=== PATIENT | female | born 1965 | race Two or more races ===

== ENCOUNTER 2018-06-20 09:00 | Outpatient (AMBR) | payer MEDICARE, MEDICAID, SELFPAY ==
--- NOTE | 2018-06-09 10:24 | PT.OIERPT ---
PT OP Initial Eval Patient Information Pediatric or Adult Patient: Adult PT >13 Visit Reasons: RIGHT KNEE PAIN Medical Diagnosis: S 83.221A R MENISCAL TEAR Treatment Dx #1: pain on the R knee Start of Care: 06/09/18 Date of Onset: 04/08/2018 Initial Assessment Subjective 52 y/o female with multiple medical problems, R shoulder surgery due to Rotator cuff tear, R bicipital tendinitis, chronic mid back pain, hx of R foot fracture. Patient had an MRI and shows questionable medical meniscus tear and posterior horn. Patient was referred to PT for muscle strengthening and stabilization for conservative management. Patient has limitation on ambulation on level surface and the stairs. 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 Objective ms strength of knee flexors 5/5 knee extensors 4+/5 pain on the R knee PS 8/10 upon movement Standing balance S/D = good no swelling noted on the R knee, Mild swelling noted on the L superior aspect of the knee (+) tenderness on the medial aspect of the joint line in the inferior patella. MRI shows possible meniscal tear. Assessment Patient gave consent to treat her. This therapist explained the procedure including but not limited to Thera exercise and manual therapy as clinically appropriate. Patient will benefit from skilled PT services for strengthening ex and stabilization of the knee to promote ms strength. If patient will continue to have pain inspite of Physical therapy will referred back to orthopedic MD for further management. Patient verbalized understanding Short Term and Anesthesia Technician Goals To decrease pain on the R knee PS 3/10 To be able to increase ms strength on Rknee extensors to 5/5 To be able to manage stairs and to be able to ambulate with less difficult on even surface. Treatment Plan Thera ex NMR-ed Manual tx Modalites (estim, hmp) as clinically appropriate. Frequency and Duration 2x/wk x 4 weeks Certification Dates: 06/09/2018 to 09/05/2018
--- NOTE | 2018-06-16 13:38 | PT.ODAYNRPT ---
PT Outpatient Daily Note Date of Service: June 16, 2018 OP Daily Note Visit Reasons: RIGHT KNEE PAIN Outpatient Physical Therapy Treatment Date: 06/16/18 Subjective: pt had no complaints upon visit today. Objective: see flow sheet. Assessment: observed good quad contraction during exercises. good knee extension as well. after a few exercises and heel slides pt was having pain of the lateral R knee. pt was able to control each rep with slow and steady motion. she was able to complete the exercises but did have muscle fatigue. informed pt about possible soreness and use ice pack if needed. Plan: continue POC per PT. Length of Time (minutes) of Treatment: 30 Minutes Office Procedures PT Outpatient G-Codes Date of Service PT Date of Service: 06/09/18 G-Codes Walking & Moving Around Mobility Current Status G-Code: G8978: CJ 20-40% Mobility Status G-Code: G8979: CI 1-20% PT Procedures PT Date of Service: 06/09/18 OP PT Eval Mod Complex 30 minutes: Yes PT Procedures PT Date of Service: 06/16/18 Therapeutic Exercise 30 minutes: Yes
--- NOTE | 2018-06-20 09:25 | PT.ODAYNRPT ---
PT Outpatient Daily Note Date of Service: June 20, 2018 OP Daily Note Pediatric or Adult Patient: Adult PT >13 Visit Reasons: RIGHT KNEE PAIN Outpatient Physical Therapy Treatment Date: 06/20/18 Subjective: I have less pain today. I was sore after my therapy but it was good. Objective: pls see FS Assessment: patient is making progress steadily toward goals. as per patient it was just like this last time that she will feel better for 3mos and then it will hurt again. Patient were advice to see MD if that happens again. no swelling noted at the time of therapy. patient were given restbreaks as needed to prevent fatigue and to prevent increase of pain. Plan: to continue POC toward goals. Pain Present Currently: Yes (01/29) Length of Time (minutes) of Treatment: 30 Minutes Office Procedures PT Outpatient G-Codes Date of Service PT Date of Service: 06/09/18 G-Codes Walking & Moving Around Mobility Current Status G-Code: G8978: CJ 20-40% Mobility Status G-Code: G8979: CI 1-20% PT Procedures PT Date of Service: 06/09/18 OP PT Eval Mod Complex 30 minutes: Yes PT Procedures PT Date of Service: 06/16/18 Therapeutic Exercise 30 minutes: Yes
== END 2018-06-21 23:59 | disposition home or self-care (01) ==
PROVIDERS: PCP Nurse Practitioner Family; Referring Provider Nurse Practitioner Family; Visit Provider Orthopaedic Surgery
DX: I10 Essential (primary) hypertension (principal)
CPT/HCPCS: 97110; 97162; G8978; G8979

== ENCOUNTER 2018-07-07 09:30 | Outpatient (AMBR) | payer MEDICARE, MEDICAID, SELFPAY ==
--- NOTE | 2018-06-30 11:12 | PT.ODAYNRPT ---
PT Outpatient Daily Note Date of Service: June 30, 2018 OP Daily Note Pediatric or Adult Patient: Adult PT >13 Visit Reasons: r knee pain Outpatient Physical Therapy Treatment Date: 06/30/18 Subjective: Patient has complain of pain on Bilateral knees more on te R LE vs the LLE Objective: pls see FS Assessment: Patient states she didn't get enough sleep last night and was feeling tired this am. Patient has complain of pain on the L knee too and states she will have to deal with the R knee first before the L knee. Patient has complain of pain in the hip during tic tac exercise. Exercise was stop to prevent increase in pain. Plan: to continue POC toward goals. Pain Present Currently: Yes Length of Time (minutes) of Treatment: 30 Minutes Office Procedures PT Procedures PT Date of Service: 06/30/18 Therapeutic Exercise 30 minutes: Yes
--- NOTE | 2018-07-04 10:32 | PT.ODAYNRPT ---
PT Outpatient Daily Note Date of Service: July 04, 2018 OP Daily Note Visit Reasons: r knee pain Outpatient Physical Therapy Treatment Date: 07/04/18 Subjective: Patient is feeling better. No complaint of severe pain on the knee Objective: pls see FS Assessment: Patient were seen today doing strengthening ex. Patient were given 2lbs. As per patient her R knee is feeling better. Her L knee is bothering her more and that she will have to see her MD for the L knee. If patient will continue to progress. Will dc from skilled PT services next PT session. Plan: to continue POC toward goals. Pain Present Currently: Yes (01/29) Length of Time (minutes) of Treatment: 30 Minutes Office Procedures PT Procedures PT Date of Service: 06/30/18 Therapeutic Exercise 30 minutes: Yes
--- NOTE | 2018-07-07 10:07 | PT.ODS1RPT ---
PT OP Progress/Discharge Note Date of Service: July 07, 2018 Progress Note/DC Note Progress Note/Discharge Note: DC Note Patient Information Visit Reasons: r knee pain Admission Reason: R knee pain Medical Diagnosis: R meniscal tear S83.221A Treatment Dx #1: Pain in the R knee Service Continue Service or Discharge: Discharge Physical Therapy Outpatient Service Dates: From: / To:: 06/09/2018 to 07/07/2018 Discharge Date: 07/07/18 Certification Date Certification Dates: 06/09/2018 to 09/05/2018 Plan Treatment Plan: Status Subjective: 52 y/o female who had multiple medical problems including R knee pain. MRI shows questionable medial meniscus tear and posterior horn. Today at the last treatment session. patient still complains of pain on the R knee. Today is PS7/10. although she mentioned it is on and off sometimes it is better sometimes she feels pain that she has to wear brace. Today she does feel pain and she said she wears her brace yesterday and will wear them tomorrow. But She feels uncomfortable wearing them. 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 Objective: ms strength of knee flexors and extensors 5/5 Pain on the R knee at worst is 7/10 at best its 3/10 Standing balance = good No edema noted on bilateral LE. Assessment: Patient will be dc today due to no significant gains noted. Patient will be referred back to her referring MD for further management. 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 Plan: to be dc from skilled PT services secondary to maximum rehab potential achieved. Treatment Provided This POC: Thera ex for ms strengthening to facilitate transfers and amb and balance training to promote balance and to decrease risk of falls. Goals Achieved: ms strength on RLE is 5/5 grossly graded. Discharge Comment: dc from skilled PT services. Will refer back to her referring MD. As per patient she has an appointment already set up this to see him. She was thankful for the service provided. Office Procedures PT Procedures PT Date of Service: 06/30/18 Therapeutic Exercise 30 minutes: Yes PT Procedures PT Date of Service: 07/04/18 Therapeutic Exercise 30 minutes: Yes
--- NOTE | 2018-07-07 10:34 | PTNOTE_ITS ---
PT OP Progress/Discharge Note Date of Service: July 07, 2018 Progress Note/DC Note Progress Note/Discharge Note: DC Note Patient Information Visit Reasons: r knee pain Admission Reason: R knee pain Medical Diagnosis: R meniscal tear S83.221A Treatment Dx #1: Pain in the R knee Service Continue Service or Discharge: Discharge Physical Therapy Outpatient Service Dates: From: / To:: 06/09/2018 to 07/07/2018 Discharge Date: 07/07/18 Certification Date Certification Dates: 06/09/2018 to 09/05/2018 Plan Treatment Plan: Status Subjective: 52 y/o female who had multiple medical problems including R knee pain. MRI shows questionable medial meniscus tear and posterior horn. Today at the last treatment session. patient still complains of pain on the R knee. Today is PS7/10. although she mentioned it is on and off sometimes it is better sometimes she feels pain that she has to wear brace. Today she does feel pain and she said she wears her brace yesterday and will wear them tomorrow. But She feels uncomfortable wearing them. 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 Objective: ms strength of knee flexors and extensors 5/5 Pain on the R knee at worst is 7/10 at best its 3/10 Standing balance = good No edema noted on bilateral LE. Assessment: Patient will be dc today due to no significant gains noted. Patient will be referred back to her referring MD for further management. 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 Plan: to be dc from skilled PT services secondary to maximum rehab potential achieved. Treatment Provided This POC: Thera ex for ms strengthening to facilitate transfers and amb and balance training to promote balance and to decrease risk of falls. Goals Achieved: ms strength on RLE is 5/5 grossly graded. Discharge Comment: dc from skilled PT services. Will refer back to her referring MD. As per patient she has an appointment already set up this to see him. She was thankful for the service provided. Office Procedures PT Procedures PT Date of Service: 06/30/18 Therapeutic Exercise 30 minutes: Yes PT Procedures PT Date of Service: 07/04/18 Therapeutic Exercise 30 minutes: Yes
== END 2018-07-22 23:59 | disposition home or self-care (01) ==
PROVIDERS: PCP Nurse Practitioner Family; Referring Provider Nurse Practitioner Family; Visit Provider Nurse Practitioner Family
DX: M25.561 Pain in right knee (principal); M25.562 Pain in left knee; S83.221D Peripheral tear of medial meniscus, current injury, right knee, subsequent encounter; X58.XXXD Exposure to other specified factors, subsequent encounter
CPT/HCPCS: 97110

== ENCOUNTER 2025-03-18 07:37 | Emergency (ER) | payer MEDICARE, MEDICAID, SELFPAY ==
[2025-03-18 08:08] VITALS: BP 168/77; PULSE 70; RESP 20; TEMP 36.7; O2SAT 98; BMI 23.2
--- NOTE | 2025-03-18 08:34 | XR_ITS ---
Examination: CT lumbar spine, without contrast. 2-D sagittal reconstructions. 2-D coronal reconstructions. 3-D reconstructions. Date and time of exam:March 18, 2025 0855 hours Comparison January 03, 2024 INDICATIONS: Low back pain several years, patient fell one year ago with increasing low back pain CTDI: vol (mGy):14.1 DLP: (mGycm):417 Technique: Multiple 1.25 mm axial sections of the lumbar spine without intravenous contrast have been obtained. 2-D sagittal and coronal reconstructions have been obtained. 3-D reconstructions have been obtained. Low dose protocols were performed. One or more of the following dose reduction techniques were used; automated exposure control, adjustment of the mA and/or KV according to patient size, use of iterative reconstruction technique. Findings: Satisfactory alignment lumbar vertebral bodies No lumbar fracture No spondylolisthesis Lumbar pedicles, laminae, transverse and posterior spinous processes intact L5-S1 no disc protrusion L4-L5 no disc protrusion L3-L4 no disc protrusion L2-L3 no disc protrusion L1-L2 no disc protrusion IMPRESSION: Satisfactory alignment lumbar vertebral bodies No lumbar fracture No focal lumbar disc protrusion If pain persists, consider MRI lumbar spine without contrast follow-up
--- NOTE | 2025-03-18 08:34 | XR_ITS ---
Examination:Right hip AP, lateral, AP pelvis 3 views Technique: Hip AP lateral, AP pelvis, 3 views Exam date and time:March 18, 2025 0952 hours INDICATIONS: Chronic right hip pain years FINDINGS: Moderate osteopenia. Minimal narrowing right hip joint No hip fracture or hip dislocation Bones of the pelvis intact IMPRESSION: Minimal narrowing hip joints No hip or pelvic fracture
--- NOTE | 2025-03-18 08:44 | EDRME_ITS ---
Rapid Medical Screening Exam RME Arrival date/time: 03/18/25 07:37 This is a 59-year-old female that comes to the emergency room with multiple complaints. 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 Patient currently on [place] for pain patient states that the [place] has not been helping her. Patient states her lower back and her right hip have been hurting her P. Patient describes generalized weakness but no focal weakness to any area. Patient denies any numbness or tingling. Patient states the pain to her lower back has become unbearable. Patient denies any trauma. I have greeted and performed a focused initial assessment of this patient. Initial appropriate labs ordered at this time. A comprehensive ED assessment and evaluation of the patient and analysis of all test and completion of medical decision making process will be conducted by additional ED provider. Chief Complaint: Back Pain/Injury Time Seen by Provider: 03/18/25 07:54 Vital signs: Vital Signs Temperature 98.1 F 03/18/25 08:08 Pulse Rate 70 03/18/25 08:08 Respiratory Rate 20 03/18/25 08:08 Blood Pressure 168/77 H 03/18/25 08:08 Pulse Oximetry (%) 98 03/18/25 08:08 Oxygen Delivery Method Room Air 03/18/25 08:08
[2025-03-18] MEDS: HYDROcodone/APAP 10/325 TAB PO (09:14)
[2025-03-18] MEDS: ONDANSETRON ODT 4 MG TABRAP PO (09:15)
--- NOTE | 2025-03-18 10:20 | EDNOTE_ITS ---
<Statement entered by Michell Angel MD - 03/25/25 04:26> As co-signing physician, I was present and available for consult prn. I concur with the plan and care as documented by the midlevel provider. Lower Extremity Injury RME/HPI General Chief Complaint: Back Pain/Injury Stated Complaint: REALLY BAD PAIN IN R) HIP & R) LOWER BACK Time Seen by Provider: 03/18/25 07:54 Arrival date/time: 03/18/25 07:37 This is a 59-year-old female that comes to the emergency room with multiple c omplaints. Patient states that she has fibromyalgia she has hyperlipidemia, chronic pain, high blood pressure, depression spinal stenosis, and is under direct care by her personal banking advisor. Patient currently on [place] for pain patient states that the [place] has not been helping her. Patient states her lower back and her right hip have been hurting her. Patient describes generalized weakness but no focal weakness to any area. Patient denies any numbness or tingling. Patient states the pain to her lower back has become unbearable. Patient denies any trauma. No loss of bowel or bladder function. RME / HPI RME / HPI Narrative: 03/18/25 07:37 This is a 59-year-old female that comes to the emergency room with multiple c omplaints. Patient states that she has fibromyalgia she has hyperlipidemia, chronic pain, high blood pressure, depression spinal stenosis, and is under direct care by her personal banking advisor. Patient currently on [place] for pain patient states that the [place] has not been helping her. Patient states her lower back and her right hip have been hurting her P. Patient describes generalized weakness but no focal weakness to any area. Patient denies any numbness or tingling. Patient states the pain to her lower back has become unbearable. Patient denies any trauma. I have greeted and performed a focused initial assessment of this patient. Initial appropriate labs ordered at this time. A comprehensive ED assessment and evaluation of the patient and analysis of all test and completion of medical decision making process will be conducted by additional ED provider. Related Data Home Medications ?Medication ?Instructions ?Recorded ?Confirmed sertraline 100 mg tablet 100 mg PO QDAY 11/02/1908/14 alendronate 70 mg tablet 1 tab PO QWEEK 04/23/2208/14 atorvastatin 80 mg tablet 80 mg PO QDAY 04/23/2203/30 ezetimibe 10 mg tablet 10 mg PO QDAY 04/23/2203/30 gabapentin 300 mg capsule 300 mg PO BID 04/23/2203/30 lisinopril 5 mg tablet 5 mg PO QDAY 04/23/22 hydrocodone 10 mg-acetaminophen 1 tab PO QID PRN Pain 03/30/23 03/30/23 325 mg tablet ibuprofen 600 mg tablet 600 mg PO BID PRN Pain 03/3003/30/23 omeprazole 20 mg capsule,delayed 20 mg PO DAILY 03/30/23 release varenicline tartrate 1 mg tablet 1 mg PO BID 03/30/23 03/30/23 Previous Rx's ?Medication ?Instructions ?Recorded hydrocodone 5 mg-acetaminophen 325 1 tab PO BID PRN pa in #6 tabs 01/03/24 mg tablet ibuprofen 600 mg tablet 600 mg PO Q6H #30 tabs 01/03 lidocaine 5 % topical patch 2 patch topical Q24H #30 e a 03/02/24 meloxicam 7.5 mg tablet 7.5 mg PO QDAY #7 tabs 04/30 cyclobenzaprine 10 mg tablet 10 mg PO TID PRN muscle s pasm #10 09/27/24 tabs ibuprofen 600 mg tablet 600 mg PO Q8H PRN pain #20 t abs 09/27/24 Allergies Allergy/AdvReac Type Severity Reaction Status Date / Time Sulfa (Sulfonamide Allergy Unknown RASH Verified 03/18/25 07:41 Antibiotics) Review of Systems Review of Systems Systems Reviewed: All systems reviewed, normal except as documented Past Medical History Past Medical History NEUROLOGIC: Positive Neurological Disorders and Meningitis; Negative Seizures CARDIAC: Positive Hypercholesterolemia and Hypertension; Negative Cardiac Disorders, Congestive Heart Failure, Edema, Cellulitis or Varicose Veins RESPIRATORY: Negative Chronic Obstructive Pulmonary Disease (COPD), Asthma, Pneumonia, Tuberculosis, Pulmonary Embolism or Sleep Apnea GASTROINTESTINAL: Positive Gastrointestinal Disorders, Hemorrhoids and Gastroesophageal Reflux Disease; Negative Hepatitis GENITOURINARY: Negative Genitourinary Disorders or Renal Disease REPRODUCTIVE: Positive Previous Pregnancies MUSCULOSKELETAL: Positive Musculoskeletal Disorders, Arthritis, Scoliosis, Carpal Tunnel Syndrome and Fibromyalgia ENT: Positive Deafness ENDOCRINE: Negative Endocrine Disorders, Diabetes Mellitus Type 1, Diabetes Mellitus Type 2, Hyperthyroidism, Hypothyroidism, Thyroid Cancer or Parathyroid Disease HEMATOLOGIC: Negative Blood Disorders or Sickle Cell Disease PSYCHO/SOCIAL: Positive Depression and Anxiety OTHER HISTORY: Positive Chicken Pox; Negative Hospitalization, Autoimmune Disease, Shingles, Falls, Blood Transfusions, Anesthesia Reactions, Chemotherapy, Radiation Therapy, MRSA, Measles, Mumps or Cancer Family History FAMILY HISTORY: Positive Family Psychiatric Problems and Family Cardiac Disord ers; Negative Family Respiratory Disorders, Family Gastrointestinal Problems, Family Cancer, Family Surgery or Family Anesthesia Reaction Surgical History SURGICAL: Positive Abdominal Surgery and Hysterectomy; Negative Cardiac Surgery or Pacemaker Social History SMOKING STATUS: Never smoker SECOND HAND EXPOSURE: No SUBSTANCE USE: does not use ED Exam General General appearance: Present alert and in no apparent distress Head Head exam: Present atraumatic Eye Eye exam: Present normal appearance, PERRL and EOMI ENT ENT exam: Present normal exam, normal oropharynx and mucous membranes moist Neck Neck exam: Present normal inspection, full ROM and trachea midline Chest Chest inspection: Present normal inspection and symmetric chest wall rise Respiratory Respiratory exam: Present normal lung sounds bilaterally Cardiovascular Cardiovascular exam: Present regular rate and other (cap refill less than 2 seconds ) Abdominal Exam Abdominal exam: Present soft Extremities Exam Extremities exam: Present normal inspection and full ROM Back Exam Back exam: Present full ROM and other (pain to palpation right hip and lateral muscles of lower right back, no pain over spinal prcesses) Neurological Exam Neurological exam: Present alert, oriented X3 and CN II-XII intact Psychiatric Psychiatric exam: Present normal affect and normal mood Skin Skin exam: Present warm, dry, intact and normal color Course Quality Measures none Orders Category Date Time Status CT lumbar spine wo con Stat Exams 03/18/25 08:34 Completed XR hip RT w pelvis min 4V Stat Exams 03/18/25 08:34 Completed HYDROcodone/APAP 10/325 [[place] 10/325] Med 03/18/25 08:35 Discontinued 1 tab PO X1 ONE Metoclopramide Inj [Reglan Inj] Med 03/18/25 10:49 Discontinued 10 mg IM X1 ONE Morphine Inj Med 03/18/25 10:49 Discontinued 2 mg IM X1 ONE Ondansetron Odt [Zofran Odt] Med 03/18/25 08:35 Discontinued 4 mg PO X1 ONE Vital Signs Vital signs: Vital Signs Temperature 98.1 F 03/18/25 08:08 Pulse Rate 70 03/18/25 08:08 Respiratory Rate 20 03/18/25 08:08 Blood Pressure 168/77 H 03/18/25 08:08 Pulse Oximetry (%) 98 03/18/25 08:08 Oxygen Delivery Method Room Air 03/18/25 08:08 Extremity Injury, Lower MDM Narrative MDM Narrative:: HIP X RAY: FINDINGS: Moderate osteopenia. Minimal narrowing right hip joint No hip fracture or hip dislocation Bones of the pelvis intact IMPRESSION: Minimal narrowing hip joints No hip or pelvic fracture LUMBAR SPINE: Findings: Satisfactory alignment lumbar vertebral bodies No lumbar fracture No spondylolisthesis Lumbar pedicles, laminae, transverse and posterior spinous processes intact L5-S1 no disc protrusion L4-L5 no disc protrusion L3-L4 no disc protrusion L2-L3 no disc protrusion L1-L2 no disc protrusion IMPRESSION: Satisfactory alignment lumbar vertebral bodies No lumbar fracture No focal lumbar disc protrusion If pain persists, consider MRI lumbar spine without contrast follow-up Today patient had xrays There was no acute fracture seen. Exam appeared unremarkable. I explained to patient at length that if there was continued pain to this area or worsened to come back to ED or see primary provider for more xrays or further testing such as CT scan or MRI. X rays are not perfect and sometimes serial films needed. Patient verbalized understanding. Patient states they will follow up with primary provider in 1-2 days or come back to ED if symptoms change or worsen. Patient data External records reviewed:: [facility] previous records Clinical information provided by:: patient Social determinants that could affect healthcare access:: none Patient has the following chronic illnesses:: see hpi How is presenting disease/condition affected by chronic disease/condition?: no chronic disease Evaluation data The following diagnostics were reviewed and interpreted by me:: radiology exam( s) Lab and/or radiology exams considered but not ordered:: none Interpretation Summary: see note Medications / Prescriptions Medications or Prescriptions considered but not ordered:: none Medication administrations:: Medication Administration History Discontinued Medications Hydrocodone Bitart/Acetaminophen (Hydrocodone/Apap 10/325 Tab) 1 tab PO X1 ONE Stop: 03/18/25 08:36 Last Admin: 03/18/25 09:14 Dose: 1 tab Documented By: ATUL Metoclopramide HCl (Metoclopramide Inj 5 Mg/Ml Vial 2 Ml) 10 mg IM X1 ONE; Protocol Stop: 03/18/25 10:50 Last Admin: 03/18/25 11:06 Dose: 10 mg Documented By: AYE Morphine Sulfate (Morphine Sulf Inj 10 Mg/Ml Vial) 2 mg IM X1 ONE Stop: 03/18/25 10:50 Last Admin: 03/18/25 11:06 Dose: 2 mg Documented By: AYE Ondansetron HCl (Ondansetron Odt 4 Mg Tabrap) 4 mg PO X1 ONE; Protocol Stop: 03/18/25 08:36 Last Admin: 03/18/25 09:15 Dose: 4 mg Documented By: ATUL see raymond Consultations Consultation(s) initiated? (list below): No Diagnosis Extremity Injury, Lower Differential Diagnosis: other (back pain, lumbar fracture, contusion ) Most likely diagnosis given after review of the tests above:: chronic lower back pain Admission Indicated Admission indicated?: not indicated Admission Request Was there a request for admission?: No Disposition Plan Disposition Plan: Discharge Discharge Attestation Discharge Attestation: The patient and all family members were given an opportunity to ask questions and understood the discharge instructions. Discharge instructions specifically effects, indications for sooner follow up or return to the emergency department, and the expected course of current diagnosis. Patient condition: Stable Discharge Plan Plan Patient Disposition: HOME (Self Care) Patient condition on transfer: Stable Prescriptions/Referrals Prescriptions/Med Rec: No Action atorvastatin 80 mg Tablet 80 mg PO QDAY alendronate 70 mg tablet 1 tab PO QWEEK Rx Instructions: Q mondays gabapentin 300 mg Capsule 300 mg PO BID lisinopril 5 mg Tablet 5 mg PO QDAY ezetimibe 10 mg Tablet 10 mg PO QDAY sertraline 100 mg Tablet 100 mg PO QDAY hydrocodone-acetaminophen 10-325 mg tablet 1 tab PO QID PRN (Reason: Pain) Patient Comments: TAKE ONE TABLET BY MOUTH FOUR TIMES DAILY NEEDED FOR PAIN ibuprofen 600 mg tablet 600 mg PO BID PRN (Reason: Pain) omeprazole 20 mg capsule,delayed release(DR/EC) 20 mg PO DAILY Patient Comments: TAKE ONE CAPSULE BY MOUTH 30 MINUTES BEFORE morning meal varenicline tartrate 1 mg tablet 1 mg PO BID Patient Comments: TAKE ONE TABLET BY MOUTH TWICE DAILY TO STOP SMOKING WITH GLASS OF WATER Rx Instructions: just started. lidocaine 5 % adhesive patch,medicated 2 patch topical Q24H Qty: 30 0RF Rx Instructions: leave on most painful area for up to 12 hrs cyclobenzaprine 10 mg tablet 10 mg PO TID PRN (Reason: muscle spasm) Qty: 10 0RF ibuprofen 600 mg tablet 600 mg PO Q8H PRN (Reason: pain) Qty: 20 0RF hydrocodone-acetaminophen 5-325 mg tablet 1 tab PO BID MDD 10 PRN (Reason: pain) Qty: 6 0RF ibuprofen 600 mg tablet 600 mg PO Q6H Qty: 30 0RF meloxicam 7.5 mg tablet 7.5 mg PO QDAY Qty: 7 0RF Referrals: Sally Monsalve MD [Primary Care Provider] - In 1 week Problem List Clinical Impression: Chronic back pain Patient/Caregiver Discharge Instructions Discharge Activity: activity as tolerated Education Materials: ED Back Pain (Acute or Chronic) Additional Instructions: HIP X RAY: FINDINGS: Moderate osteopenia. Minimal narrowing right hip joint No hip fracture or hip dislocation Bones of the pelvis intact IMPRESSION: Minimal narrowing hip joints No hip or pelvic fracture LUMBAR SPINE: Findings: Satisfactory alignment lumbar vertebral bodies No lumbar fracture No spondylolisthesis Lumbar pedicles, laminae, transverse and posterior spinous processes intact L5-S1 no disc protrusion L4-L5 no disc protrusion L3-L4 no disc protrusion L2-L3 no disc protrusion L1-L2 no disc protrusion IMPRESSION: Satisfactory alignment lumbar vertebral bodies No lumbar fracture No focal lumbar disc protrusion If pain persists, consider MRI lumbar spine without contrast follow-up Follow-up with primary provider in 1 to 2 days. Come back to the emergency room if symptoms change or worsen. Print Language: Mongolian Stand Alone Forms: [employer] Award Info., Patient Portal Info Letter PA/WARREN Supervising Physician REUBEN/WARREN Supervising Physician: BILLY
[2025-03-18] MEDS: METOCLOPRAMIDE INJ 5 MG/ML VIAL 2 ML 10 MG IM (11:06)
[2025-03-18] MEDS: MORPHINE SULF INJ 10 MG/ML VIAL 2 MG IM (11:06)
== END 2025-03-18 11:10 | disposition home or self-care (01) ==
PROVIDERS: Emergency Provider Emergency Medicine; PCP Obstetrics & Gynecology
DX: G89.29 Other chronic pain (principal); M54.50 Low back pain, unspecified; M79.7 Fibromyalgia; E78.5 Hyperlipidemia, unspecified; F32.A Depression, unspecified
CPT/HCPCS: 72131; 73503; 96372; 99284; J2270; J2765; Q0162; A9270

== ENCOUNTER → 2025-08-07 | Outpatient (CLI) | payer MEDICARE, MEDICAID, SELFPAY ==
--- NOTE | 2025-08-07 15:30 | XR_ITS ---
Examination: CT chest, without intravenous contrast. Sagittal and coronal 2-D reconstructions. Exam date and time: August 07, 2025, 1558 hrs. Indications: Nicotine dependence, smoking history 30 years, 6 mm pulmonary nodule right upper lobe on CT chest March 02, 2024 CTDI:vol (mGy) 7.25 DLP: (mGycm) 247 Technique: Multiple 3.0 mm axial sections of the chest to been obtained. Bone and lung density settings are obtained. Sagittal and coronal 2-D reconstructions have been obtained. Low dose protocols were performed. One or more of the following dose reduction techniques were used; automated exposure control, adjustment of the mA and/or KV according to patient size, use of iterative reconstruction technique. Findings: No thoracic aortic aneurysmal dilatation Pulmonary artery segments are not enlarged. No paratracheal tracheobronchial or bronchopulmonary adenopathy. 5 mm pulmonary nodule right upper lobe image 106 3 mm pulmonary nodule posterior left lung image 201 No visualized liver or splenic lesion No gallstones Significant left renal scarring Impression: Noncalcified pulmonary nodules as above, with this study as baseline recommend continued 6 month follow-up CT chest without contrast
== END | disposition home or self-care (01) ==
LOC: CCTX 15:02
PROVIDERS: Referring Provider Physician Assistant Medical; Visit Provider Physician Assistant Medical
DX: R91.8 Other nonspecific abnormal finding of lung field (principal); F17.210 Nicotine dependence, cigarettes, uncomplicated
CPT/HCPCS: 71271